=== PATIENT | female | born 1990 | race Caucasian/White ===

== ENCOUNTER 2016-08-06 02:24 | Emergency (ER) | payer BC ==
[2016-08-06 02:50] LABS: URINE BILIRUBIN NEGATIVE (NEGATIVE); URINE BLOOD TRACE (NEGATIVE); URINE GLUCOSE (UA) NORMAL (NORMAL); URINE KETONE 3+ (NEGATIVE); URINE LEUKOCYTE ESTERASE 1+ (NEGATIVE); URINE NITRATE NEGATIVE (NEGATIVE); URINE PROTEIN 1+ (NEGATIVE); UROBILINOGEN NORMAL mg/dL (<1.0)
[2016-08-06 03:17] LABS: URINE RBC 0-5 /[HPF] (0-2)
[2016-08-06 03:18] LABS: URINE BACTERIA TRACE (NONE SEEN); URINE SQUAMOUS EPITHELIAL CELL 0-10 /[HPF] (NONE SEEN)
[2016-08-06 03:23] LABS: BASO % 0.2 % (0.1-1.2); EOS % 0.2 % (0.7-5.8); GRAN # 11.7 10_X3_uL (1.6-6.1); GRAN % 88.5 % (34.0-71.1); HEMATOCRIT 37.1 % (34-45); HEMOGLOBIN 12.7 g/dL (11.2-15.7); LYMPH # 0.7 10_X3_uL (1.2-3.7); MEAN CORPUSCULAR HEMOGLOBIN 29.3 pg (27.0-33.0); MEAN CORPUSCULAR HGB CONC 34.2 g/dL (32.0-36.0); MEAN CORPUSCULAR VOLUME 85.5 fL (79-95); MEAN PLATELET VOLUME 9.4 fl (7.5-11.5); MONO # 0.8 10_X3_uL (0.2-0.9); MONO % 6.1 % (4.7-12.5); PLATELET COUNT 245 x10_3/uL (182-369); RED BLOOD COUNT 4.34 x10_6/uL (3.9-5.2); RED CELL DISTRIBUTION WIDTH 13.3 % (11.7-14.4); WHITE BLOOD COUNT 13.2 x10_3/uL (4.0-10.0)
[2016-08-06 03:30] LABS: ALKALINE PHOSPHATASE 40 U/L (50-136); ALT/SGPT 11 U/L (3.5-33.9); AST/SGOT 15 U/L (7.04-26.96); BILIRUBIN,TOTAL 0.82 mg/dL (0.0-1.0); BLOOD UREA NITROGEN 7 mg/dL (7-18); CALCIUM 8.5 mg/dL (8.7-10.7); CARBON DIOXIDE 20 mmol/L (21-32); CREATININE 0.5 mg/dL (0.6-1.3); GLUCOSE,RANDOM 123 mg/dL (70-99); LIPASE 28 U/L (6.75-60.75); POTASSIUM 3.3 mmol/L (3.5-5.1); SODIUM 135 mmol/L (136-145); TOTAL PROTEIN 6.6 gm/dL (6.4-8.2)
== END 2016-08-06 06:17 | disposition home or self-care (01) ==
LOC: ER 02:24
PROVIDERS: Emergency Medicine
DX: N30.90 Cystitis, unspecified without hematuria (principal); K52.9 Noninfective gastroenteritis and colitis, unspecified; E86.0 Dehydration; R11.10 Vomiting, unspecified; R19.7 Diarrhea, unspecified; F32.9 Major depressive disorder, single episode, unspecified; Z87.11 Personal history of peptic ulcer disease; Z87.42 Personal history of other diseases of the female genital tract; Z79.3 Long term (current) use of hormonal contraceptives; Z79.899 Other long term (current) drug therapy
CPT/HCPCS: 36415; 80053; 81001; 81025; 83690; 85025; 87086; 96365; 96375; 99070; 99283-25; J7040